=== PATIENT | male | born 2000 | race Caucasian/White ===

== ENCOUNTER → 2020-07-14 14:56 | Outpatient (BNVA) | payer SELFPAY | PROVIDERS: Family Provider Nurse Practitioner Family; PCP Nurse Practitioner Family; Visit Provider Family Medicine | DX: G40.909 Epilepsy, unspecified, not intractable, without status epilepticus (principal) | CPT/HCPCS: 80177 ==

== ENCOUNTER 2020-08-06 14:19 | Emergency (ER) | payer SELFPAY ==
[2020-08-06 14:21] VITALS: BP 111/81; PULSE 111; RESP 20; TEMP 36.6; O2SAT 100; BMI 19.3
--- NOTE | 2020-08-06 14:25 | XRR_ITS ---
PROCEDURE INFORMATION: Exam: XR Chest, 1 View Exam date and time: 08/06/2020 2:48 PM Age: 20 years old Clinical indication: Other: Ans; Additional info: Altered ms TECHNIQUE: Imaging protocol: XR of the chest Views: 1 view. COMPARISON: No relevant prior studies available. FINDINGS: Lungs: Unremarkable. No consolidation. Pleural space: Unremarkable. No pleural effusion. No pneumothorax. Heart/Mediastinum: Unremarkable. No cardiomegaly. Bones/joints: Unremarkable. XR/XR chest 1V portable [id number] IMPRESSION: No acute findings.
--- NOTE | 2020-08-06 14:25 | CTR_ITS ---
PROCEDURE INFORMATION: Exam: CT Head Without Contrast Exam date and time: 08/06/2020 2:48 PM Age: 20 years old Clinical indication: Altered mental status/memory loss TECHNIQUE: Imaging protocol: Computed tomography of the head without contrast. Radiation optimization: All CT scans at this facility use at least one of these dose optimization techniques: automated exposure control; mA and/or kV adjustment per patient size (includes targeted exams where dose is matched to clinical indication); or iterative reconstruction. COMPARISON: No relevant prior studies available. RADIATION DOSE METRICS: Total DLP (mGy-cm): 761.17 FINDINGS: Brain: Normal. No hemorrhage. Unremarkable white matter. No mass effect. Cerebral ventricles: No ventriculomegaly. Bones/joints: Unremarkable. No acute fracture. Paranasal sinuses: Visualized sinuses are unremarkable. No fluid levels. Mastoid air cells: Visualized mastoid air cells are well aerated. Soft tissues: Unremarkable. CT/CT head wo con* [id number] IMPRESSION: No acute intracranial abnormality. Radiation Dose CTDIVOL = (mGy): DLP = 761.17 (mGy-cm)
--- NOTE | 2020-08-06 14:37 | PC.NURSE ---
Read and agree with triage assessment.
--- NOTE | 2020-08-06 14:46 | W.ED.AMS ---
HPI - Altered Mental Status General: Chief Complaint: Altered Mental Status Stated Complaint: AMS Time Seen by Provider: 08/06/20 14:19 History of Present Illness: HPI narrative: Patient is a 20-year-old male who was found under his mother's desk unresponsive. Ambulance said he was breathing 12 times a minute, satting well. They said he had pinpoint pupils and gave him 0.4 of Narcan which helped him wake him 0.4 more of Narcan which helped him sit up and talk though not responding to all questions appropriately. During transport they started an IV give him 800 cc of fluid, Zofran, Benadryl and during transport he had an episode of bradycardia in the 30s for approximately a minute and systolic pressure in the 60s. He was given 0.5 atropine and vitals improved and he had tachycardia. On arrival to the ER he is complaining of pain. Denies taking drugs other than marijuana. Says he has a seizure disorder and has about 3 or 4 seizures a year. He thinks this could possibly be a seizure. MD complaint: altered mental status and decreased responsiveness Severity: severe Associated symptoms: Reports no associated symptoms; Deny depression Treatments prior to arrival: IV fluid Review of Systems General: Reports: 10 or more systems reviewed and unremarkable except in HPI and below Const: Denies: fatigue Eyes: Denies: change in vision, blurry vision or eye redness ENMT: Denies: throat pain, swelling of lips/tongue, ear or mastoid pain or nasal congestion Card: Denies: chest pain, palpitations, irregular heart rhythm, edema, dyspnea on exertion or orthopnea Resp: Denies: dyspnea, productive cough or non-productive cough GI: Denies: abdominal pain, diarrhea or GI cramping : Denies: flank pain, urinary frequency or urinary urgency Musc: Denies: neck pain, back pain, extremity pain, joint pain, joint redness, limited range of motion or muscle weakness Skin/Breast: Denies: rash, pruritus, erythema, skin pain or skin tenderness Neuro: Denies: headache(s), numbness in extremities, weakness in extremities, sensory changes, difficulty walking, dizziness, confusion or Slurred speech present Psych: Denies: anxiety or depression Endo: Denies: polyuria All/Imm: Denies: urticaria, throat swelling or tongue swelling PFS ED PFSH: Medical History (Updated 08/06/20 @ 17:17 by Luis Ann MD) Back pain Tonic clonic epilepsy Surgical History (Updated 07/14/20 @ 14:42 by Treva Garcia DO) No pertinent past surgical history Social History Smoking and tobacco status: current every day smoker cigarettes Packs smoked per day: 0.5 Physical Exam Const: COMMON NORMALS: no acute distress, average body habitus, patient oriented x3, no limitations, healthy appearing, alert and well nourished GENERAL APPEARANCE: cooperative, comfortable, well kempt and well developed ORIENTATION/CONSCIOUSNESS: Yes awake, Yes oriented to person, Yes oriented to place and Yes oriented to time HENMT: COMMON NORMALS: normocephalic, external ears normal and Normal external nose present HEAD & SCALP: normal to inspection and normocephalic NOSE: Normal external nose present EXTERNAL EAR: Yes external ears normal MOUTH: Normal oral and palatal mucosa present THROAT: posterior oropharynx normal Eye: COMMON NORMALS: Equal, round and reactive pupils present and EOMs intact bilaterally GENERAL EYE: appearance normal, both eyes and all related structures PUPIL: Yes Equal, round and reactive pupils present Neck/C-Spine: COMMON NORMALS: full ROM, no lymphadenopathy, no meningeal signs and no JVD GENERAL: Yes normal visual inspection Lymph: LYMPHATIC: no lymphadenopathy noted Chest: COMMONS NORMALS: normal inspection of the chest and normal palpation of entire chest wall Resp: COMMON NORMALS: normal respiratory effort, No retractions, No use of accessory muscles, clear to auscultation bilaterally and percussion normal EFFORT & INSPECTION: Yes able to speak in complete sentences AUSCULTATION: clear to auscultation bilaterally PERCUSSION: percussion normal Cardio: COMMON NORMALS: no JVD, regular rate, regular rhythm, S1 normal heart sound present, S2 normal heart sound present and Peripheral pulses 2+ throughout RATE: regular rate RHYTHM: regular rhythm HEART SOUNDS: S1 normal heart sound present and S2 normal heart sound present PERIPHERAL PULSES: Peripheral pulses 2+ throughout GI: COMMON NORMALS: Normal to inspection, nondistended, normoactive bowel sounds present, Soft to palpation, non-tender and no masses INSPECTION: Yes normal to inspection PALPATION: Yes Soft to palpation : COMMON NORMALS: Yes no CVA tenderness BLADDER/KIDNEY EXAM: Yes no CVA tenderness Back/Pelvis: COMMON NORMALS: no CVA tenderness, thoracic and lumbar spine normal to inspection, no thoracic nor lumbar tenderness and thoraco-lumbar ROM normal Extremity: COMMON NORMALS: normal to inspection, full ROM, capillary refill normal, no joint enlargement and no pedal edema GENERAL: Yes normal exam except as noted Neuro: COMMON NORMALS: patient oriented x3, CN's II-XII intact bilaterally, moves all extremities, no focal motor deficits, no sensory deficits noted and gait normal SENSORIUM/ORIENTATION: Yes alert, Yes oriented to person, Yes oriented to place and Yes oriented to time MENINGEAL SIGNS: Yes no meningeal signs Psych: COMMON NORMALS: mental status grossly normal, cooperative, normal affect and speech normal APPEARANCE: Yes well kempt ATTITUDE: Yes calm SPEECH: Yes normal speech MOOD & AFFECT: Yes anxious THOUGHT PROCESS: disorganized OTHER: complains of being cold and pain everywhere (likely side effect of narcan). Skin: COMMON NORMALS: no rashes or lesions noted GENERAL SKIN EXAM: no rashes or lesions noted Course Vital Signs: Vital signs: Vital Signs Temperature 97.8 F 08/06/20 14:21 Pulse Rate 73 08/06/20 17:13 Respiratory Rate 16 08/06/20 17:13 Blood Pressure 110/50 08/06/20 17:13 Pulse Oximetry 100 08/06/20 17:13 MDM - Altered Mental Status MDM Narrative: Medical decision making narrative: Digging through the clotted history the patient appears to have had a seizure. His CK is elevated and he has a headache and was tachycardic when he came in all consistent with postictal states. He is chronically hypotensive but his pressure now is 110/60 which is where he trends. He says he is taking his Keppra. I discussed with Dr. Medrano who recommends no changes and discharge home with follow-up with her and get an EEG as well. The patient and his mother are amenable to this plan and feel comfortable with discharge. Return to the ER with worsening symptoms Lab Data: Labs: Lab Results 08/06/20 08/06/20 08/06/20 Range/Units 14:40 14:40 15:10 WBC 5.4 (4.5-13.0) 10^3/ uL RBC 5.05 (4.1-5.3) 10^6/u L Hgb 14.6 (11.7-16.6) g/dL Hct 41.6 L (42.0-52.0) % MCV 82.4 (80-94) fL MCH 28.9 (28.0-34.0) pg MCHC 35.1 (30.0-36.0) g/dL RDW 12.0 L (12.1-15.1) % Plt Count 228 (130-400) 10^3/c mm MPV 10.2 (7.4-10.4) fL Neut % (Auto) 70.4 % Lymph % (Auto) 20.5 % [place] % (Auto) 5.2 % Eos % (Auto) 2.6 % Baso % (Auto) 0.6 % Neut # (Auto) 3.81 (1.8-8.0) 10^3/u L Lymph # (Auto) 1.1 L (1.5-6.5) 10^3/u L [place] # (Auto) 0.3 (0.2-0.9) 10^3/u L Eos # (Auto) 0.1 (0.0-0.8) 10^3/u L Baso # (Auto) 0.0 (0.0-0.1) 10^3/u L Nucleated RBC % (a uto) 0 % Nucleated RBCs # 0.0 /100WBC Sodium 141 (136-145) mmol/L Potassium 3.7 (3.5-5.1) mmol/L Chloride 104 (98-107) mmol/L Carbon Dioxide 24 (22-29) mmol/L Anion Gap 16.7 (5-19) BUN 5 L (6-20) mg/dL Creatinine 0.9 (0.7-1.2) mg/dL GFR Calculation 107.6 (90-130) mL/min Glucose 87 (65-115) mg/dL Calculated Osmolal ity 289 (285-295) mOsm/k g Lactate 2.1 (0.5-2.2) mmol/L Calcium 9.2 (8.5-10.5) mg/dL Total Bilirubin 0.2 (0.15-1.2) mg/dL AST 23 (0-40) U/L ALT 15 (0-41) U/L Alkaline Phosphata se 101 (40-130) IU/L Creatine Kinase 476 H* (39-308) U/L Total Protein 6.4 L (6.6-8.7) g/dL Albumin 4.4 (3.5-5.2) g/dL Globulin 2.0 (1.3-4.6) g/dL Urine Color (Yellow) Urine Appearance (CLEAR) Urine pH (5-7) Ur Specific Gravit y (1.005-1.030) Urine Protein (Negative) Urine Glucose (UA) (Normal) Urine Ketones (Negative) Urine Blood (Negative) Urine Nitrate (Negative) Urine Bilirubin (Negative) Urine Urobilinogen (Negative) mg/dL Ur Leukocyte Homa ase (Negative) Urine Opiates Scre en (Negative) ng/mL Ur Barbiturates Sc reen (Negative) ng/mL Ur Phencyclidine S crn (Negative) ng/mL Ur Amphetamines Sc reen (Negative) ng/mL U Benzodiazepines Scrn (Negative) ng/mL Urine Cocaine Scre en (Negative) ng/mL U Marijuana (THC) Screen (Negative) ng/mL Ethyl Alcohol < 10 (0-10) mg/dL 08/06/20 08/06/20 Range/Units 15:31 15:31 WBC (4.5-13.0) 10^3/ uL RBC (4.1-5.3) 10^6/u L Hgb (11.7-16.6) g/dL Hct (42.0-52.0) % MCV (80-94) fL MCH (28.0-34.0) pg MCHC (30.0-36.0) g/dL RDW (12.1-15.1) % Plt Count (130-400) 10^3/c mm MPV (7.4-10.4) fL Neut % (Auto) % Lymph % (Auto) % [place] % (Auto) % Eos % (Auto) % Baso % (Auto) % Neut # (Auto) (1.8-8.0) 10^3/u L Lymph # (Auto) (1.5-6.5) 10^3/u L [place] # (Auto) (0.2-0.9) 10^3/u L Eos # (Auto) (0.0-0.8) 10^3/u L Baso # (Auto) (0.0-0.1) 10^3/u L Nucleated RBC % (a uto) % Nucleated RBCs # /100WBC Sodium (136-145) mmol/L Potassium (3.5-5.1) mmol/L Chloride (98-107) mmol/L Carbon Dioxide (22-29) mmol/L Anion Gap (5-19) BUN (6-20) mg/dL Creatinine (0.7-1.2) mg/dL GFR Calculation (90-130) mL/min Glucose (65-115) mg/dL Calculated Osmolal ity (285-295) mOsm/k g Lactate (0.5-2.2) mmol/L Calcium (8.5-10.5) mg/dL Total Bilirubin (0.15-1.2) mg/dL AST (0-40) U/L ALT (0-41) U/L Alkaline Phosphata se (40-130) IU/L Creatine Kinase (39-308) U/L Total Protein (6.6-8.7) g/dL Albumin (3.5-5.2) g/dL Globulin (1.3-4.6) g/dL Urine Color Straw (Yellow) Urine Appearance Clear (CLEAR) Urine pH 7 (5-7) Ur Specific Gravit y 1.015 (1.005-1.030) Urine Protein Neg (Negative) Urine Glucose (UA) Norm (Normal) Urine Ketones Negative (Negative) Urine Blood Neg (Negative) Urine Nitrate Negative (Negative) Urine Bilirubin Neg (Negative) Urine Urobilinogen Norm (Negative) mg/dL Ur Leukocyte Homa ase Negative (Negative) Urine Opiates Scre en Negative (Negative) ng/mL Ur Barbiturates Sc reen Negative (Negative) ng/mL Ur Phencyclidine S crn Negative (Negative) ng/mL Ur Amphetamines Sc reen Negative (Negative) ng/mL U Benzodiazepines Scrn Negative (Negative) ng/mL Urine Cocaine Scre en Negative (Negative) ng/mL U Marijuana (THC) Screen Positive H (Negative) ng/mL Ethyl Alcohol (0-10) mg/dL Discharge Plan Discharge Patient Disposition: Home Clinical Impression: Seizure disorder Condition: Stable Prescriptions: No Action levetiracetam [Keppra] 1,000 mg tablet 1,000 mg PO BID Qty: 60 RF: 0 Discharge Orders: Discharge ED (Routine); Ordered 08/06/20 Ordered By: Luis Ann Referrals: Gio Guajardo FNP [Primary Care Provider] - Discharge Diet: Advance as tolerated Discharge Activity: Resume usual activity Patient Instructions: Seizures Activity Restrictions/Additional Instructions: You have likely had a seizure. Please continue to take your medicine and follow-up with Dr. Medrano. I have placed a case management referral to get you help with that follow-up and also an EEG as an outpatient. Also in there she recommended wearing a Holter monitor and getting in with a smash piecer which I placed in the case management referral as well. Return to the ER with worsening symptoms. Do not drive a car until released by neurology. Coding Level of Care Code ED Digital Marketing Program Manager for [facility] Exam Comprehensive
[2020-08-06 14:56] LABS: Basophils % 0.6 %; Eosinophils # 0.1 10^3/uL (0.0-0.8); Eosinophils % 2.6 %; Hematocrit 41.6 % (42.0-52.0); Hemoglobin 14.6 g/dL (11.7-16.6); Lymphocytes # 1.1 10^3/uL (1.5-6.5); Lymphocytes % 20.5 %; Mean Corpuscular HGB Conc 35.1 g/dL (30.0-36.0); Mean Corpuscular Hemoglobin 28.9 pg (28.0-34.0); Mean Corpuscular Volume 82.4 fL (80-94); Mean Platelet Volume 10.2 fL (7.4-10.4); Monocytes # 0.3 10^3/uL (0.2-0.9); Monocytes % 5.2 %; Neutrophils # 3.81 10^3/uL (1.8-8.0); Neutrophils % 70.4 %; Nucleated Red Blood Cells % 0 %; Platelet Count 228 10^3/cmm (130-400); Red Blood Count 5.05 10^6/uL (4.1-5.3); White Blood Count 5.4 10^3/uL (4.5-13.0)
[2020-08-06 15:18] LABS: Alanine Aminotransferase 15 U/L (0-41); Albumin Level 4.4 g/dL (3.5-5.2); Alkaline Phosphatase 101 IU/L (40-130); Aspartate Amino Transferase 23 U/L (0-40); Blood Urea Nitrogen 5 mg/dL (6-20); Calcium 9.2 mg/dL (8.5-10.5); Carbon Dioxide 24 mmol/L (22-29); Chloride 104 mmol/L (98-107); Glomerular Filtration Rate 107.6 mL/min (90-130); Glucose 87 mg/dL (65-115); Osmolality Calculated 289 mOsm/kg (285-295); Sodium 141 mmol/L (136-145); Total Bilirubin 0.2 mg/dL (0.15-1.2); Total Protein 6.4 g/dL (6.6-8.7)
[2020-08-06 15:23] LABS: Alcohol Level < 10 mg/dL (0-10)
[2020-08-06 15:25] LABS: Anion Gap 16.7 (5-19)
[2020-08-06 15:26] LABS: Potassium 3.7 mmol/L (3.5-5.1)
[2020-08-06 15:27] LABS: Creatine Phosphokinase 476 U/L (39-308)
[2020-08-06 15:32] VITALS: BP 110/49; PULSE 74; RESP 16; O2SAT 100
[2020-08-06 15:44] LABS: Add Urine Microscopic? NO
--- NOTE | 2020-08-06 15:50 | PC.NURSE ---
Patient observed sticking multiple fingers into mouth while gagging. Patient advised not to continue. Patient states I can't control my urge to do so .
[2020-08-06 15:55] LABS: Bilirubin Urine Neg (Negative); Blood Urine Neg (Negative); Glucose Urine UA Norm (Normal); Ketones Urine Negative (Negative); Leukocyte Esterase Urine Negative (Negative); Nitrate Urine Negative (Negative); Protein Urine Neg (Negative); Specific Gravity, Urine 1.015 (1.005-1.030); Urine Appearance Clear (CLEAR); Urine Color Straw (Yellow); Urobilinogen Urine Norm (Negative); pH Urine 7 (5-7)
[2020-08-06 16:02] VITALS: BP 102/47; PULSE 78; RESP 16; O2SAT 100
[2020-08-06 16:04] LABS: Amphetamines Screen Urine Negative (Negative); Barbiturates Screen Urine Negative (Negative); Benzodiazepines Screen Urine Negative (Negative); Cocaine Screen Urine Negative (Negative); Opiate Screen Urine Negative (Negative); PCP Screen Urine Negative (Negative); THC Screen Urine Positive (Negative)
[2020-08-06 16:12] LABS: Lactate (Lactic Acid level) 2.1 mmol/L (0.5-2.2)
[2020-08-06] MEDS: sodium chloride 0.9% 500 ML IV (16:16)
[2020-08-06 16:32] VITALS: BP 93/38; PULSE 66; RESP 16; O2SAT 100
[2020-08-06 17:00] VITALS: BP 93/38; PULSE 59; RESP 16; O2SAT 100
[2020-08-06 17:13] VITALS: BP 110/50; PULSE 73; RESP 16; O2SAT 100
--- NOTE | 2020-08-09 09:56 | DCPLANNER ---
financial project manager had message to schedule a follow up appointment for patient with neurology and cardiology. financial project manager called the office of Dr. Medrano, spoke with Kina, a follow up appointment was scheduled for Monday, August 10, 2020 at 3:[address] Medrano. Clinic will inform patient of this appointment. financial project manager had a message to schedule an out patient EEG, was told that Dr. Medrano will order this if needed. financial project manager also had message to schedule a holter monitor and a follow up with cardiology. financial project manager called [facility], spoke with Es, gave clinic patients information. A follow up appointment is scheduled for August at 12:15. financial project manager had message for a halter monitor, cardiology will determine if a monitor is needed and if so will order the halter monitor. financial project manager called [phone], unable to speak with patient at this time, a voicemail was left for patient with appointment information.
--- NOTE | 2020-10-18 09:05 | DCPLANNER ---
Patient moved and all appointments were cancelled.
== END 2020-08-06 17:21 | disposition home or self-care (01) ==
PROVIDERS: Emergency Provider Family Medicine; Family Provider Nurse Practitioner Family; PCP Nurse Practitioner Family
DX: G40.909 Epilepsy, unspecified, not intractable, without status epilepticus (principal); F17.210 Nicotine dependence, cigarettes, uncomplicated
CPT/HCPCS: 12345; 36415; 70450; 71045; 80053; 80177; 80306; 80307; 81003; 82550; 83605; 85025; 96360; 99283; 99284; J7040

== ENCOUNTER 2020-09-18 15:16 | Emergency (ER) | payer SELFPAY ==
--- NOTE | 2020-09-18 15:28 | ED_ITS ---
HPI - Psych General: Chief Complaint: Anxiety Stated Complaint: MHE Time Seen by Provider: 09/18/20 15:19 History of Present Illness: HPI Narrative: 20-year-old male presents emergency room complaining of anger issues. Stated complaint is listed as suicidal id eation however when talking to him is not really suicidal ideation has a plan of harming himself in terms of killing himself but has thought about punching himself. He is not previously been hospitalized for suicidal ideation. He has not had any particular plans to harm himself. He relates his change in mood to an increase in low Bactrim recently from 500 twice a day to thousand twice a day. Denies any intent to harm anyone else either. He has been hospitalized in the past for aggressive behavior and anger outbursts. In the exam room he is reasonable answers questions well and provides good history with no evidence of irritation or agitation or confrontational behavior. MD complaint: other (Emotional outbursts) Onset (ago): hour(s) Duration: intermittent and changing over time History of same: Yes Relieving factors: none Exacerbating factors: medication Associated psychiatric symptoms: other (Emotional outburst/anger outburst) Associated symptoms: Deny auditory hallucinations, visual hallucinations, delusions, depression, homicidal ideation, suicidal ideation or racing thoughts Treatments prior to arrival: none Review of Systems Const: Denies: fever(s), chills, body aches, change in appetite, fatigue or malaise ENMT: Denies: throat pain, ear or mastoid pain, nasal discharge or nasal congestion Card: Denies: chest pain, edema, dyspnea on exertion or orthopnea Resp: Denies: dyspnea, productive cough or non-productive cough GI: Denies: abdominal pain, nausea, vomiting, hematemesis, coffee ground emesis, diarrhea, constipation, bloating, hematochezia or melena : Denies: flank pain, dysuria, urinary frequency or urinary urgency Skin/Breast: Denies: rash or pruritus Psych: Denies: visual hallucinations, auditory hallucinations, suicidal ideation or homicidal ideation [facility] ED PFSH: Medical History Back pain Tonic clonic epilepsy Surgical History No pertinent past surgical history Social History Smoking and tobacco status: current every day smoker cigarettes Packs smoked per day: 0.5 Physical Exam Const: COMMON NORMALS: no acute distress GENERAL APPEARANCE: cooperative and comfortable ORIENTATION/CONSCIOUSNESS: Yes awake, Yes oriented to person, Yes oriented to place and Yes oriented to time HENMT: COMMON NORMALS: normocephalic, atraumatic and hearing grossly normal bilaterally HEAD & SCALP: normocephalic and atraumatic Neck/C-Spine: COMMON NORMALS: no JVD Lymph: LYMPHATIC: no lymphadenopathy noted and no lymphedema noted Resp: COMMON NORMALS: normal respiratory effort, No retractions, No use of accessory muscles and clear to auscultation bilaterally AUSCULTATION: clear to auscultation bilaterally Cardio: COMMON NORMALS: no JVD, regular rate, regular rhythm and No murmurs present (Cardio) RATE: regular rate RHYTHM: regular rhythm GI: COMMON NORMALS: Soft to palpation and No hepatosplenomegaly present AUSCULTATION: Yes normoactive bowel sounds PALPATION: Yes Soft to palpation, No Tenderness to palpation present (GI), No Guarding due to palpation present (GI) and Yes No hepatosplenomegaly present Extremity: COMMON NORMALS: normal to inspection, capillary refill normal, no clubbing, cyanosis or edema, no calf tenderness and no pedal edema Neuro: SENSORIUM/ORIENTATION: Yes oriented to person, Yes oriented to place and Yes oriented to time Psych: THOUGHT CONTENT: No delusions Skin: COMMON NORMALS: no rashes or lesions noted GENERAL SKIN EXAM: no rashes or lesions noted MDM - Psych MDM Narrative: Medical decision making narrative: Patient has previously been set up to be evaluated neurology through a series of circumstances was not able to make those appointments. I called Dr. Dr. Medrano. She felt in a patient like this would be best to decrease his Keppra to 750 twice daily also recommended that we consider starting a SSRI. Working to get the patient set up for follow-up with Dr. Medrano in the office after sleep deprived EEG impressed upon the patient the importance of keeping an appointment so that we can get him taken care of. Lab Data: Labs: Lab Results 09/18/20 09/18/20 09/18/20 Range/Units 15:38 15:38 15:46 WBC 8.0 (4.5-13.0) 10^3/ uL RBC 5.04 (4.1-5.3) 10^6/u L Hgb 14.6 (11.7-16.6) g/dL Hct 41.1 L (42.0-52.0) % MCV 81.5 (80-94) fL MCH 29.0 (28.0-34.0) pg MCHC 35.5 (30.0-36.0) g/dL RDW 11.9 L (12.1-15.1) % Plt Count 198 (130-400) 10^3/c mm MPV 10.1 (7.4-10.4) fL Neut % (Auto) 76.8 % Lymph % (Auto) 16.3 % [place] % (Auto) 5.6 % Eos % (Auto) 0.6 % Baso % (Auto) 0.5 % Neut # (Auto) 6.16 (1.8-8.0) 10^3/u L Lymph # (Auto) 1.3 L (1.5-6.5) 10^3/u L [place] # (Auto) 0.5 (0.2-0.9) 10^3/u L Eos # (Auto) 0.1 (0.0-0.8) 10^3/u L Baso # (Auto) 0.0 (0.0-0.1) 10^3/u L Nucleated RBC % (a uto) 0 % Nucleated RBCs # 0.0 /100WBC Sodium 140 (136-145) mmol/L Potassium 3.2 L (3.5-5.1) mmol/L Chloride 105 (98-107) mmol/L Carbon Dioxide 23 (22-29) mmol/L Anion Gap 15.2 (5-19) BUN 8 (6-20) mg/dL Creatinine 0.8 (0.7-1.2) mg/dL GFR Calculation 123.2 (90-130) mL/min Glucose 73 (65-115) mg/dL Calculated Osmolal ity 287 (285-295) mOsm/k g Calcium 9.2 (8.5-10.5) mg/dL Total Bilirubin 0.7 (0.15-1.2) mg/dL AST 17 (0-40) U/L ALT 14 (0-41) U/L Alkaline Phosphata se 100 (40-130) IU/L Total Protein 7.0 (6.6-8.7) g/dL Albumin 4.8 (3.5-5.2) g/dL Globulin 2.2 (1.3-4.6) g/dL Urine Color (Yellow) Urine Appearance (CLEAR) Urine pH (5-7) Ur Specific Gravit y (1.005-1.030) Urine Protein (Negative) Urine Glucose (UA) (Normal) Urine Ketones (Negative) Urine Blood (Negative) Urine Nitrate (Negative) Urine Bilirubin (Negative) Urine Urobilinogen (Negative) mg/dL Ur Leukocyte Homa ase (Negative) Salicylates < 0.3 L (3-10) mg/dL Urine Opiates Scre en Negative (Negative) ng/mL Acetaminophen < 5.0 L (10-30) ug/mL Ur Barbiturates Sc reen Negative (Negative) ng/mL Ur Phencyclidine S crn Negative (Negative) ng/mL Ur Amphetamines Sc reen Negative (Negative) ng/mL U Benzodiazepines Scrn Negative (Negative) ng/mL Urine Cocaine Scre en Negative (Negative) ng/mL U Marijuana (THC) Screen Positive H (Negative) ng/mL Ethyl Alcohol < 10 (0-10) mg/dL 09/18/20 Range/Units 15:46 WBC (4.5-13.0) 10^3/ uL RBC (4.1-5.3) 10^6/u L Hgb (11.7-16.6) g/dL Hct (42.0-52.0) % MCV (80-94) fL MCH (28.0-34.0) pg MCHC (30.0-36.0) g/dL RDW (12.1-15.1) % Plt Count (130-400) 10^3/c mm MPV (7.4-10.4) fL Neut % (Auto) % Lymph % (Auto) % [place] % (Auto) % Eos % (Auto) % Baso % (Auto) % Neut # (Auto) (1.8-8.0) 10^3/u L Lymph # (Auto) (1.5-6.5) 10^3/u L [place] # (Auto) (0.2-0.9) 10^3/u L Eos # (Auto) (0.0-0.8) 10^3/u L Baso # (Auto) (0.0-0.1) 10^3/u L Nucleated RBC % (a uto) % Nucleated RBCs # /100WBC Sodium (136-145) mmol/L Potassium (3.5-5.1) mmol/L Chloride (98-107) mmol/L Carbon Dioxide (22-29) mmol/L Anion Gap (5-19) BUN (6-20) mg/dL Creatinine (0.7-1.2) mg/dL GFR Calculation (90-130) mL/min Glucose (65-115) mg/dL Calculated Osmolal ity (285-295) mOsm/k g Calcium (8.5-10.5) mg/dL Total Bilirubin (0.15-1.2) mg/dL AST (0-40) U/L ALT (0-41) U/L Alkaline Phosphata se (40-130) IU/L Total Protein (6.6-8.7) g/dL Albumin (3.5-5.2) g/dL Globulin (1.3-4.6) g/dL Urine Color Straw (Yellow) Urine Appearance Clear (CLEAR) Urine pH 6.5 (5-7) Ur Specific Gravit y 1.005 (1.005-1.030) Urine Protein Neg (Negative) Urine Glucose (UA) Norm (Normal) Urine Ketones 1+ H (Negative) Urine Blood Neg (Negative) Urine Nitrate Negative (Negative) Urine Bilirubin Neg (Negative) Urine Urobilinogen Norm (Negative) mg/dL Ur Leukocyte Homa ase Negative (Negative) Salicylates (3-10) mg/dL Urine Opiates Scre en (Negative) ng/mL Acetaminophen (10-30) ug/mL Ur Barbiturates Sc reen (Negative) ng/mL Ur Phencyclidine S crn (Negative) ng/mL Ur Amphetamines Sc reen (Negative) ng/mL U Benzodiazepines Scrn (Negative) ng/mL Urine Cocaine Scre en (Negative) ng/mL U Marijuana (THC) Screen (Negative) ng/mL Ethyl Alcohol (0-10) mg/dL Discharge Plan Discharge Patient Disposition: Home Clinical Impression: Tonic clonic epilepsy, Medication side effects Condition: Stable Prescriptions: New citalopram 10 mg tablet 10 mg PO DAILY Qty: 30 RF: 0 levetiracetam 750 mg tablet 750 mg PO BID Qty: 60 RF: 0 Discontinued levetiracetam [Keppra] 1,000 mg tablet 1,000 mg PO BID@ RF: 0 Discharge Orders: Discharge ED (Routine); Ordered 09/18/20 Ordered By: Jose Guerra Referrals: Gio Guajardo FNP [Primary Care Provider] - Discharge Diet: Usual diet Discharge Activity: Increase activity as tolerated Patient Instructions: Opioid Safety Activity Restrictions/Additional Instructions: This management will call with an appointment for a EEG as well as a referral to Dr. Medrano's office. We have decreased her low levactrim and added citalopram. Coding Level of Care Code ED Information Technology Advisor for [facility] Exam Comprehensive
[2020-09-18 15:35] VITALS: BP 113/61; PULSE 63; RESP 18; TEMP 36.6; O2SAT 96; BMI 19.2
[2020-09-18 15:49] LABS: Add Urine Microscopic? NO
[2020-09-18 15:57] LABS: Basophils % 0.5 %; Eosinophils # 0.1 10^3/uL (0.0-0.8); Eosinophils % 0.6 %; Hematocrit 41.1 % (42.0-52.0); Hemoglobin 14.6 g/dL (11.7-16.6); Lymphocytes # 1.3 10^3/uL (1.5-6.5); Lymphocytes % 16.3 %; Mean Corpuscular HGB Conc 35.5 g/dL (30.0-36.0); Mean Corpuscular Volume 81.5 fL (80-94); Mean Platelet Volume 10.1 fL (7.4-10.4); Monocytes # 0.5 10^3/uL (0.2-0.9); Monocytes % 5.6 %; Neutrophils # 6.16 10^3/uL (1.8-8.0); Neutrophils % 76.8 %; Nucleated Red Blood Cells % 0 %; Platelet Count 198 10^3/cmm (130-400); Red Blood Count 5.04 10^6/uL (4.1-5.3); Red Cell Distribution Width 11.9 % (12.1-15.1)
[2020-09-18 16:04] LABS: Urine Appearance Clear (CLEAR); Urine Color Straw (Yellow); pH Urine 6.5 (5-7)
[2020-09-18 16:05] LABS: Bilirubin Urine Neg (Negative); Blood Urine Neg (Negative); Glucose Urine UA Norm (Normal); Ketones Urine 1+ (Negative); Leukocyte Esterase Urine Negative (Negative); Nitrate Urine Negative (Negative); Protein Urine Neg (Negative); Specific Gravity, Urine 1.005 (1.005-1.030); Urobilinogen Urine Norm (Negative)
[2020-09-18 16:14] LABS: Amphetamines Screen Urine Negative (Negative); Barbiturates Screen Urine Negative (Negative); Benzodiazepines Screen Urine Negative (Negative); Cocaine Screen Urine Negative (Negative); Opiate Screen Urine Negative (Negative); PCP Screen Urine Negative (Negative); THC Screen Urine Positive (Negative)
[2020-09-18 16:27] LABS: Alanine Aminotransferase 14 U/L (0-41); Albumin Level 4.8 g/dL (3.5-5.2); Alkaline Phosphatase 100 IU/L (40-130); Anion Gap 15.2 (5-19); Aspartate Amino Transferase 17 U/L (0-40); Blood Urea Nitrogen 8 mg/dL (6-20); Calcium 9.2 mg/dL (8.5-10.5); Carbon Dioxide 23 mmol/L (22-29); Chloride 105 mmol/L (98-107); Globulin 2.2 g/dL (1.3-4.6); Glomerular Filtration Rate 123.2 mL/min (90-130); Glucose 73 mg/dL (65-115); Osmolality Calculated 287 mOsm/kg (285-295); Potassium 3.2 mmol/L (3.5-5.1); Sodium 140 mmol/L (136-145); Total Bilirubin 0.7 mg/dL (0.15-1.2)
[2020-09-18 16:34] LABS: Acetaminophen < 5.0 ug/mL (10-30); Alcohol Level < 10 mg/dL (0-10); Salicylate < 0.3 mg/dL (3-10)
[2020-09-18 16:41] VITALS: BP 100/53; PULSE 54; RESP 16; O2SAT 100
[2020-09-18 17:03] VITALS: BP 100/53; PULSE 54; RESP 16; O2SAT 100
--- NOTE | 2020-09-19 10:24 | DCPLANNER ---
account manager b2b had message to schedule an outpatient sleep deprived EEG and a follow up appointment for patient with Dr. Medrano. account manager b2b called the office of Dr. Medrano, spoke with Kina. account manager b2b faxed the order for the sleep deprived EEG to the office of Dr. Medrano, caser was told that when the clinic received the order, clinic would call patient with appointment for EEG and follow up with Dr. Medrano.
--- NOTE | 2020-10-13 11:07 | DCPLANNER ---
behavioral health case manager called the office of Dr. Medrano, spoke with Kina to confirm that a follow up appointment had been scheduled for patient. behavioral health case manager was told that a follow up appointment had not been scheduled for patient. A follow up appointment was scheduled for Sunday, October 18, 2020 at 2:45 with Ruben. Clinic will call patient with appointment information. Kina from Dr. Cheney office called upper caser stating that when she called patient to give patient the appointment information, that patient stated that he moved to another stated. Appointment was cancelled.
== END 2020-09-18 17:05 | disposition home or self-care (01) ==
PROVIDERS: Emergency Provider Family Medicine; PCP Nurse Practitioner Family
DX: G40.409 Other generalized epilepsy and epileptic syndromes, not intractable, without status epilepticus (principal); T88.7XXA Unspecified adverse effect of drug or medicament, initial encounter; T50.905A Adverse effect of unspecified drugs, medicaments and biological substances, initial encounter; F17.210 Nicotine dependence, cigarettes, uncomplicated
CPT/HCPCS: 80053; 80306; 80307; 81003; 85025; 99283

== ENCOUNTER 2022-02-21 18:05 | Emergency (ER) | payer SELFPAY ==
[2022-02-21 18:55] VITALS: BP 109/63; PULSE 80; RESP 16; TEMP 36.9; O2SAT 96
--- NOTE | 2022-02-21 19:06 | ED_ITS ---
HPI - General Adult General: Chief complaint: Seizure Stated complaint: SEIZURE Time Seen by Provider: 02/21/22 18:56 History of Present Illness: HPI: [21]yo patient w/ hx of epilespy on cenobamate BIBA to the ED with breakthrough episode of the seizure which occurred 45 minutes ago. The incident was witnessed entirely by family members, while the patient was sitting down in a chair, and the family denied LOC per EMS. En route, the patient had a fingerstick glucose wnl and was back to baseline. HDS without any signs of focal neurological deficits. On arrival, the patient is AAOx3, GCS of 15 and answering all questions. The patient denies any associated chest pain, shortness of breath, palpitations, or any focal pain in the arms and legs. Of note, patient is currently getting his medication adjusted. Patient has failed Keppra and Vimpat. Patient is currently being titrated on cenobamate. Patient tells me that he is not on his therapeutic dose essential primary and thinks that this may be the cause of his seizure. Onset: 45 minutes ago Duration: x1 episode Location: home Severity: moderate Associated symptoms: Deny chest pain, dyspnea, nausea, rash, palpitations or vomiting Review of Systems Const: Denies: fever(s) or chills Eyes: Denies: change in vision ENMT: Denies: mouth pain Card: Denies: chest pain or palpitations Resp: Denies: dyspnea or non-productive cough GI: Denies: abdominal pain, nausea, vomiting or diarrhea : Denies: dysuria Musc: Denies: extremity pain Skin/Breast: Denies: rash or new lesions Neuro: Reports: other (+seizure); Denies: weakness in extremities Psych: Reports: other (Normal mood) Raffy/Lymph: Denies: easy bruising PFS ED PFSH: Medical History Back pain Tonic clonic epilepsy Surgical History No pertinent past surgical history Social History Smoking and tobacco status: current every day smoker cigarettes Packs smoked per day: 0.5 Physical Exam Const: COMMON NORMALS: alert HENMT: COMMON NORMALS: atraumatic HEAD & SCALP: atraumatic MOUTH: moist mucous membranes not abnormal Eye: COMMON NORMALS: EOMs intact bilaterally and conjunctivae normal CONJUNCTIVA: Yes conjunctivae normal Neck/C-Spine: COMMON NORMALS: full ROM and supple Resp: COMMON NORMALS: normal respiratory effort and clear to auscultation bilaterally AUSCULTATION: clear to auscultation bilaterally Cardio: COMMON NORMALS: regular rate RATE: regular rate GI: COMMON NORMALS: Soft to palpation and non-tender PALPATION: Yes Soft to palpation Extremity: COMMON NORMALS: full ROM Neuro: SENSORIUM/ORIENTATION: Yes alert MOTOR EXAM: No Abnormal motor strength present and Other motor observations present (no focal motor deficits) OTHER: Mental status? Awake, alert, and oriented to self, year, month, location, and situation.? Following simple axial and appendicular commands.? Has appropriate fund of knowledge, comprehension, and insight.? Able to recall and understands pertinent aspects of medical history and current treatment status.? ? Language? Speech is fluent without word-finding difficulties.? Intact naming, expression, administrative receptionist, and repetition.? ? Cranial nerves? 2,3,4,6: PERRL, EOMI with no nystagmus. 5: Intact sensation to light touch, symmetric? 7: Smile symmetrical, no facial droop.? 8: Hearing grossly intact.? 9,10: Normal palate movement.? 11: Normal strength in trapezius bilaterally 12: Tongue protrudes midline.? ? Motor examination? Normal bulk & tone. Strength as follows (R/L): Delts (5/5), Biceps (5/5), Triceps (5/5), Wrist ext (5/5), hip flexors (5/5), plantarflexors (5/5), dorsiflexors (5/5). ? Sensation? Light Touch: Grossly intact and equal in upper and lower extremities bilaterally? Romberg: Negative.? Distal joint position sense intact ? Coordination? Zanpsi-fp-[id number]-finger movements intact without dysmetria or past-pointing.? Rapid fingertaps: preserved amplitude without decriment.? No tremor, myoclonus or truncal ataxia.? ? Gait/stance? Steady, normal narrow base gait with appropriate arm swing and turning.? Tandem gait without hesitation or loss of balance. Psych: COMMON NORMALS: speech normal SPEECH: Yes normal speech MOOD & AFFECT: Yes euthymic mood Course Vital Signs: Vital signs: Vital Signs Temperature 98.4 F 02/21/22 18:55 Pulse Rate 62 02/21/22 21:38 Respiratory Rate 16 02/21/22 21:38 Blood Pressure 110/60 02/21/22 21:38 Pulse Oximetry 98 02/21/22 21:38 Oxygen Delivery Me thod 02/21/22 18:55 MDM - General Adult Medical Decision Making [21]yo patient w/ known hx of seizure on cenobamate BIBA after an episode of seizure which occurred within the hour. Back to baseline on arrival, AAOX3 with non-focal neuro exam. HDS. Exam revealed no focal trauma/deformity/bruises. The episode of seizure was witnessed and without any trauma/injury to the head. No immunosuppression hx and without preceding fever. No history of alcohol abuse or suspicion for toxin ingestion. Hx of prior seizure likely breakthrough seizure in the setting of medication change/non-compliance. H No lips/tongue lacerations. No visible bowel/bladder incontinence Airway protected. No drooling. Sats > 95%. Unlikely to be stroke, neurogenic syncope, acute delirium, intracranial tumor/mass, intracranial bleed, SAH/subdural hematoma/epidural hematoma, meningitis, or intracranial abscess, or from alcohol withdrawal. Workup: CBC, BMP, Magnesium, EKG, cardiac catheterization technician ED Interventions: 2g of keppra IV, PO challenge, serial reassessment EKG: No e/o STEMI. No evidence of Brugada?s sign, delta wave, epsilon wave, significantly prolonged QTc, or malignant arrhythmia. Lab findings: Electrolytes including K and Mg wnl. White count of 17 K likely reactive today. Do not suspect any acute infection at this time. [7:10pm] On reassessment, patient back to baseline. In the ED, the patient received 1g of keppra in the ED. No other witnessed episodes of seizure while the patient was observed in the ED. Repeat neuro exam is non-focal. Patient takes cenobamate 15mg for his seizures is currently titrating up on the medicine. Patient tolerated PO in the ED and was able to ambulate without difficulties. We will keep patient on keppra 750mg BID while patient titrates up on his seizure medication. Unlikely to be alternative causes of seizures since the patient has no hx of immunosuppression, no recent fevers, no recent abx/PAVING RAMMER shunt, no recent toxic exposure, no unilateral or focal weakness, or trauma. While patient is titrating up on his cenobamate, we will have patient on 750 mg of Keppra twice daily to ensure the patient does not have any additional s eizure. Rx: keppra 750 mg BID for seizures Disposition: Discharge. Patient is given instruction for follow-up with PCP and Neurology in the next 24-48 hours. Given seizure precautions including no d riving, swimming, or bathing until the patient is fully evaluated by specialists. Lab Data : 02/21/22 19:11 02/21/22 19:11 Laboratory Results WBC 17.0 10^3/uL (4.0-10.0) H 02/21/22 19:11 RBC 4.97 10^6/uL (4.1-5.3) 02/21/22 19:11 Hgb 15.1 g/dL (11.7-16.6) 02/21/22 19:11 Hct 42.5 % (42.0-52.0) 02/21/22 19:11 MCV 85.5 fl (80-94) 02/21/22 19:11 MCH 30.4 pg (28.0-34.0) 02/21/22 19:11 MCHC 35.5 g/dL (30.0-36.0) 02/21/22 19:11 RDW 12.6 % (12.1-15.1) 02/21/22 19:11 Plt Count 225 10^3/cmm (130-400) 02/21/22 19:11 MPV 9.8 fL (7.4-10.4) 02/21/22 19:11 Neut % (Auto) 87.7 % 02/21/22 19:11 Lymph % (Auto) 5.6 % 02/21/22 19:11 [place] % (Auto) 5.9 % 02/21/22 19:11 Eos % (Auto) 0.2 % 02/21/22 19:11 Baso % (Auto) 0.2 % 02/21/22 19:11 Neut # (Auto) 14.91 10^3/uL (1.8-7.7) H 02/21/22 19:11 Lymph # (Auto) 1.0 10^3/uL (0.8-4.8) 02/21/22 19:11 [place] # (Auto) 1.0 10^3/uL (0.2-0.9) H 02/21/22 19:11 Eos # (Auto) 0.0 10^3/uL (0.0-0.8) 02/21/22 19:11 Baso # (Auto) 0.0 10^3/uL (0.0-0.1) 02/21/22 19:11 Nucleated RBC % (auto) 0 % 02/21/22 19:11 Nucleated RBCs # 0.0 /100WBC 02/21/22 19:11 Sodium 137 mmol/L (136-145) 02/21/22 19:11 Potassium 4.1 mmol/L (3.5-5.1) 02/21/22 19:11 Chloride 101 mmol/L (98-107) 02/21/22 19:11 Carbon Dioxide 22 mmol/L (22-29) 02/21/22 19:11 Anion Gap 18.1 (5-19) 02/21/22 19:11 BUN 8 mg/dL (6-20) 02/21/22 19:11 Creatinine 0.8 mg/dL (0.7-1.2) 02/21/22 19:11 GFR Calculation 122.0 mL/min (90-130) 02/21/22 19:11 Glucose 83 mg/dL (65-115) 02/21/22 19:11 Calculated Osmolality 281 mOsm/kg (285-295) L 02/21/22 19:11 Calcium 9.3 mg/dL (8.5-10.5) 02/21/22 19:11 Magnesium 2.4 mg/dL (1.7-2.3) H 02/21/22 19:11 Total Bilirubin 0.7 mg/dL (0.15-1.2) 02/21/22 19:11 AST 26 U/L (0-40) 02/21/22 19:11 ALT 23 U/L (0-41) 02/21/22 19:11 Alkaline Phosphatase 100 IU/L (40-130) 02/21/22 19:11 Total Protein 6.7 g/dL (6.6-8.7) 02/21/22 19:11 Albumin 4.8 g/dL (3.5-5.2) 02/21/22 19:11 Globulin 1.9 g/dL (1.3-4.6) 02/21/22 19:11 Lipase 12 U/L (13-60) L 02/21/22 19:11 Discharge Plan Discharge Patient Disposition: Home Clinical Impression: Seizure Condition: Stable Prescriptions: New Roweepra 750 mg tablet 750 mg PO BID 14 Days Qty: 28 0RF No Action levetiracetam 750 mg tablet 750 mg PO BID Qty: 60 2RF citalopram 10 mg tablet 10 mg PO DAILY Qty: 30 2RF Discharge Orders: Discharge ED (Routine); Ordered 02/21/22 Ordered By: Mike Edwards Patient Instructions: Epilepsy (ED) Activity Restrictions/Additional Instructions: Please come back to the emergency room for any more breakthrough episodes of seizure. Come back if any weakness in her arms, drooling, difficulty speaking, any neurological symptoms. Please do not swim bathe or drive a vehicle u nattended. Coding Level of Care Code ED Securities Lending Trader for Marc Fwd Exam Comprehensive
--- NOTE | 2022-02-21 19:28 | ECG_ITS ---
[facility] Test Date: 2022-02-21 Pat Name: Ledy Oneill Department: Room: Gender: Male Senior Production Planner: : [id number] Requested By: Mike Edwards Order Number: [id number] Whitten MD: Morales Sidhu M.D. Measurements Intervals [place] Rate: 72 P: 69 CO: 128 QRS: 84 QRSD: 134 T: 56 QT: 395 QTc: 433 Interpretive Statements SINUS RHYTHM INTRAVENTRICULAR CONDUCTION DELAY [130+ ms QRS DURATION] No previous ECG available for comparison Electronically Signed On 02-21-2022 21:31:35 CDT by Morales Sidhu M.D. [id number]
[2022-02-21 19:30] LABS: Basophils % 0.2 %; Eosinophils % 0.2 %; Hematocrit 42.5 % (42.0-52.0); Hemoglobin 15.1 g/dL (11.7-16.6); Lymphocytes % 5.6 %; Mean Corpuscular HGB Conc 35.5 g/dL (30.0-36.0); Mean Corpuscular Hemoglobin 30.4 pg (28.0-34.0); Mean Corpuscular Volume 85.5 fl (80-94); Mean Platelet Volume 9.8 fL (7.4-10.4); Monocytes % 5.9 %; Neutrophils # 14.91 10^3/uL (1.8-7.7); Neutrophils % 87.7 %; Nucleated Red Blood Cells % 0 %; Platelet Count 225 10^3/cmm (130-400); Red Blood Count 4.97 10^6/uL (4.1-5.3); Red Cell Distribution Width 12.6 % (12.1-15.1)
[2022-02-21 19:55] LABS: Alanine Aminotransferase 23 U/L (0-41); Albumin Level 4.8 g/dL (3.5-5.2); Alkaline Phosphatase 100 IU/L (40-130); Anion Gap 18.1 (5-19); Aspartate Amino Transferase 26 U/L (0-40); Blood Urea Nitrogen 8 mg/dL (6-20); Calcium 9.3 mg/dL (8.5-10.5); Carbon Dioxide 22 mmol/L (22-29); Chloride 101 mmol/L (98-107); Globulin 1.9 g/dL (1.3-4.6); Glucose 83 mg/dL (65-115); Lipase 12 U/L (13-60); Magnesium 2.4 mg/dL (1.7-2.3); Osmolality Calculated 281 mOsm/kg (285-295); Potassium 4.1 mmol/L (3.5-5.1); Sodium 137 mmol/L (136-145); Total Bilirubin 0.7 mg/dL (0.15-1.2); Total Protein 6.7 g/dL (6.6-8.7)
[2022-02-21 20:56] VITALS: BP 101/44; PULSE 55; RESP 15; O2SAT 100
[2022-02-21 21:38] VITALS: BP 110/60; PULSE 62; RESP 16; O2SAT 98
== END 2022-02-21 21:40 | disposition home or self-care (01) ==
PROVIDERS: Emergency Provider Emergency Medicine
DX: R56.9 Unspecified convulsions (principal); F17.210 Nicotine dependence, cigarettes, uncomplicated
CPT/HCPCS: 80053; 83690; 83735; 85025; 93005; 96365; 96367; 99284; J1953